=== PATIENT | male | born 1935 | race Caucasian/White ===

== ENCOUNTER → 2017-04-05 | Outpatient (CLI) | payer MEDICARE ==
[~2017-04-05] MED LIST: ACYC5CRE5 TOP; AMOX500C7 PO; ASPI-1441 PO; B CO1CAP PO; BENA20TA8 PO; BENA40TA51 PO; BENA40TA52 PO; CHOL100058 PO; CIPDEXPT LEFT EAR; DIURETIC; DOXA2TAB57 PO; DOXA4TAB58 PO; ERYT1OIN3 ASDIRECTED; GEM600 PO; GLUC100026 PO; GLUC1TAB25 PO; HCTZ25 PO; PANT40TA65 PO; PER PO; PROP225T12 PO; [UNRECOGNIZED DRUG - CODE] PO; [UNRECOGNIZED DRUG - CODE] PO
== END ==
LOC: LAB 08:51
PROVIDERS: ATTEND Family Medicine
DX: Z02.9 Encounter for administrative examinations, unspecified (principal)

== ENCOUNTER → 2017-04-05 | Outpatient (CLI) | payer MEDICARE | LOC: LAB 09:20 | PROVIDERS: ATTEND Family Medicine | DX: R39.15 Urgency of urination (principal) | CPT/HCPCS: 81001 ==

== ENCOUNTER 2017-06-11 10:27 | Outpatient (RCR) | payer MEDICARE | END 2017-06-21 14:19 | disposition home or self-care (01) | LOC: RAON 10:27 | PROVIDERS: ATTEND Radiology Radiation Oncology | DX: C61 Malignant neoplasm of prostate (principal); Z85.51 Personal history of malignant neoplasm of bladder; Z92.3 Personal history of irradiation; I10 Essential (primary) hypertension; Z79.82 Long term (current) use of aspirin; Z79.899 Other long term (current) drug therapy; Z87.891 Personal history of nicotine dependence | CPT/HCPCS: 99212 ==

== ENCOUNTER → 2017-07-30 | Outpatient (CLI) | payer MEDICARE ==
[~2017-07-30] MED LIST changes: +ERYT1OIN3 TOP; +HYDR12.556 PO
--- NOTE | 2017-08-01 15:27 | RT HOLTER TEST ---
FACILITY: [facility] PATIENT NAME: Jack KOHLER : [id number] MR: [id number] V: [id number] EXAM DATE: ORDERING PHYSICIAN: KELLY CERVANTES TECHNOLOGIST: MARY ELLEN Rosales-up date: 2017-07-30 13:07:00 Duration: 47:46:00 Test Indications: PALPITATIONS Medications: 147448 QRS complexes 4798 Ventricular ectopics which represent 2 % of total QRS comp. 526 Supraventricular ectopics which represent <1 % of total QRS comp. * Paced QRS complexes which represent % of total QRS comp. VENTRICULAR ECTOPY 4794 Isolated 6 Bigeminal Cycles 2 Couplets 0 Runs 0 Beats in Runs * Beats LONGEST at * BPM at :: -- * Beats FASTEST at * BPM at :: -- SUPRAVENTRICULAR ECTOPY 524 Isolated 1 Couplets 0 Runs 0 Beats in Runs * Beats LONGEST at * BPM at :: -- * Beats FASTEST at * BPM at :: -- HEART RATES 47 MIN at 02:30:40 2017-07-31 74 AVG 126 MAX at 08:52:42 2017-08-01 LONGEST RR 1.736 secs at 00:37:40 2017-08-01 Channel 2 -12.800 mm MIN at 13:07:00 2017-07-30 -12.800 mm MAX at 13:07:00 2017-07-30 Channel 3 -12.800 mm MIN at 13:07:00 2017-07-30 -12.800 mm MAX at 13:07:00 2017-07-30 There were no reported symptoms during the test. The patient was predominantly in a sinus rhythm th roughout the test. There were some ventricular ectopic beats and occasioinal supraventricular ectopic beats Confirmed by AKUA ESCOBEDO ([id number]) on 08/01/2017 3:27:18 PM Referred By: Overread By: AKUA ESCOBEDO
== END ==
LOC: RESP 06:45
PROVIDERS: ATTEND Family Medicine
DX: I49.9 Cardiac arrhythmia, unspecified (principal)
CPT/HCPCS: 93225; 93226

== ENCOUNTER 2017-10-06 19:25 | Emergency (ER) | payer MEDICARE ==
[~2017-10-06 19:25] MED LIST changes: +BENA20TA64 PO; -BENA20TA8 PO; -BENA40TA52 PO; +BENA40TA53 PO
--- NOTE | 2017-10-06 19:33 | ER Report ---
History and Physical Time Seen By MD: 19:31 HPI/ROS CHIEF COMPLAINT: Hypertension HISTORY OF PRESENT ILLNESS: Patient is an 81-year-old male here with complaints of hypertension. Patient checks his blood pressure at home daily and is currently being treated with benazepril, doxazosin. Reportedly his systolic blood pressure was in the 190s prompting emergency department evaluation today. Patient reports having mild burning sensation in his eyes however denies headache, blurred vision, chest pain, shortness of breath, nausea, vomiting, abdominal pain, decreased urine output. Patient is afebrile, in no acute distress. Patient also complains of a small rash on his left ankle which he attributes to spider bite. REVIEW OF SYSTEMS: Constitutional: No fever, no chills. Eyes: No discharge, + burning sensation. ENT: No sore throat. Cardiovascular: No chest pain, no palpitations. Respiratory: No cough, no shortness of breath. Gastrointestinal: No abdominal pain, no vomiting. Genitourinary: No hematuria. Musculoskeletal: No back pain. Skin: No rashes. Neurological: No headache. Allergies: Coded Allergies: soy (Verified Allergy, Severe, BLURRED VISION, HEADACHES, 10/06/17) clindamycin (Verified Allergy, Unknown, 10/06/17) fentanyl (Verified Allergy, Unknown, Nausea, 10/06/17) morphine (Verified Adverse Reaction, Severe, NV, 10/06/17) Uncoded Allergies: tobacco (Allergy, Unknown, 02/15/17) Home Meds Active Scripts Hydrochlorothiazide (HYDROCHLOROTHIAZIDE) 12.5 Mg Capsule, 1 TAB PO QDAY for 90 Days, #90 CAPSULE 3 Refills Prov:KELLY CERVANTES MD 07/01/17 Benazepril Hcl (BENAZEPRIL HCL) 20 Mg Tab, 2 TAB PO QDAY for 90 Days, #180 TAB 4 Refills Prov:KELLY CERVANTES MD 03/22/17 Reported Medications Glucosamine/D3/Boswellia Shraddha (GLUCOSAMINE COMPLEX TABLET) 1 Each Tablet, 1 TAB PO BID 02/15/17 Propafenone Hcl (PROPAFENONE HCL) 225 Mg Cap.er.12h, 1 CAP PO BID 02/15/17 Doxazosin Mesylate (DOXAZOSIN MESYLATE) 4 Mg Tablet, 1 TAB PO QDAY 10/11/16 Vitamin B Comp W-C (Kelly B Comp W/C) 1 Cap Capsule, 1 CAP PO DAILY 11/10/08 Aspirin (Aspirin Ec) 81 Mg Tablet.dr, 1 TAB PO DAILY 11/10/08 Discontinued Scripts Erythromycin Base (Erythromycin) 5 Mg/Gram (0.5 %) Oint...g., 1 BRANDON TOP 3-4XD for 7 Days, #1 TUB 0 Refills Prov:JULIO LU DNP, ASSISTANT TOD[employer]ER TE[employer]ER-BC 07/05/17 Hx Smoking: Yes (AGE 19 FOR JUST A YR.) Smoking Status: Former Smoker Hx Substance Use Disorder: No Hx Alcohol Use: No Constitutional Vital Sign - Last 24 Hours 10/06/17 19:29 Temp 98.7 Pulse 66 Resp 16 B/P (MAP) 183/85 Pulse Ox 91 O2 Delivery Room Air Physical Exam General Appearance: The patient is alert, has no immediate need for airway protection and no signs of toxicity. No acute distress Eyes: Pupils equal and round no pallor or injection. ENT, Mouth: Mucous membranes are moist. Respiratory: There are no retractions, lungs are clear to auscultation. Cardiovascular: Regular rate and rhythm. + Hypertensive Gastrointestinal: Abdomen is soft and non tender, no masses, bowel sounds normal. Neurological: No focal neurological deficits Skin: Warm and dry, no rashes. Musculoskeletal: Neck is supple non tender. Extremities are nontender, nonswollen and have full range of motion. DIFFERENTIAL DIAGNOSIS: After history and physical exam differential diagnosis was considered for symptomatic versus asymptomatic hypertension, end organ damage Medical Decision Making Data Points Result Diagram: 10/06/17195210/06/171952 Laboratory Hematology Test 10/06/17 19:53 10/06/17 20:08 Red Blood Count 4.52 M/uL (4.00-5.60) Mean Corpuscular Volume 95.9 fL (80.0-96.0) Mean Corpuscular Hemoglobin 33.4 pg (26.0-33.0) Mean Corpuscular Hemoglobin Concent 34.8 g/dL (32.0-36.0) Red Cell Distribution Width 13.2 % (11.5-14.5) Mean Platelet Volume 9.0 fL (7.2-11.1) Neutrophils (%) (Auto) 73.6 % (39.4-72.5) Lymphocytes (%) (Auto) 9.8 % (17.6-49.6) Monocytes (%) (Auto) 6.4 % (4.1-12.4) Eosinophils (%) (Auto) 7.3 % (0.4-6.7) Basophils (%) (Auto) 2.9 % (0.3-1.4) Nucleated RBC Relative Count (auto) 0.1 /100WBC Neutrophils # (Auto) 3.5 K/uL (2.0-7.4) Lymphocytes # (Auto) 0.5 K/uL (1.3-3.6) Monocytes # (Auto) 0.3 K/uL (0.3-1.0) Eosinophils # (Auto) 0.3 K/uL (0.0-0.5) Basophils # (Auto) 0.1 K/uL (0.0-0.1) Nucleated RBC Absolute Count (auto) 0.01 K/uL Sodium Level 141 mmol/L (137-145) Potassium Level 3.6 mmol/L (3.5-5.0) Chloride Level 105 mmol/L (98-107) Carbon Dioxide Level 26 mmol/L (22-30) Blood Urea Nitrogen 20 mg/dl (9-21) Creatinine 1.10 mg/dl (0.66-1.25) Glomerular Filtration Rate Calc > 60.0 Random Glucose 119 mg/dl (75-110) Calcium Level 9.1 mg/dl (8.4-10.2) Total Bilirubin 0.4 mg/dl (0.2-1.3) Aspartate Amino Transf (AST/SGOT) 20 U/L (0-35) Alanine Aminotransferase (ALT/SGPT) 19 U/L (0-56) Alkaline Phosphatase 88 U/L (0-126) Total Protein 6.4 g/dl (6.3-8.2) Albumin 3.9 g/dl (3.5-5.0) Chemistry Test 10/06/17 19:53 10/06/17 20:08 White Blood Count 4.7 k/uL (4.5-11.0) Red Blood Count 4.52 M/uL (4.00-5.60) Hemoglobin 15.1 g/dL (14.0-18.0) Hematocrit 43.3 % (42.0-52.0) Mean Corpuscular Volume 95.9 fL (80.0-96.0) Mean Corpuscular Hemoglobin 33.4 pg (26.0-33.0) Mean Corpuscular Hemoglobin Concent 34.8 g/dL (32.0-36.0) Red Cell Distribution Width 13.2 % (11.5-14.5) Platelet Count 145 K/uL (150-450) Mean Platelet Volume 9.0 fL (7.2-11.1) Neutrophils (%) (Auto) 73.6 % (39.4-72.5) Lymphocytes (%) (Auto) 9.8 % (17.6-49.6) Monocytes (%) (Auto) 6.4 % (4.1-12.4) Eosinophils (%) (Auto) 7.3 % (0.4-6.7) Basophils (%) (Auto) 2.9 % (0.3-1.4) Nucleated RBC Relative Count (auto) 0.1 /100WBC Neutrophils # (Auto) 3.5 K/uL (2.0-7.4) Lymphocytes # (Auto) 0.5 K/uL (1.3-3.6) Monocytes # (Auto) 0.3 K/uL (0.3-1.0) Eosinophils # (Auto) 0.3 K/uL (0.0-0.5) Basophils # (Auto) 0.1 K/uL (0.0-0.1) Nucleated RBC Absolute Count (auto) 0.01 K/uL Glomerular Filtration Rate Calc > 60.0 Calcium Level 9.1 mg/dl (8.4-10.2) Total Bilirubin 0.4 mg/dl (0.2-1.3) Aspartate Amino Transf (AST/SGOT) 20 U/L (0-35) Alanine Aminotransferase (ALT/SGPT) 19 U/L (0-56) Alkaline Phosphatase 88 U/L (0-126) Total Protein 6.4 g/dl (6.3-8.2) Albumin 3.9 g/dl (3.5-5.0) Urinalysis Test 10/06/17 20:08 ED Course/Re-evaluation ED Course Patient is an 81-year-old male here with complaints of asymptomatic hypertension on an CHUCHO inhibitor Benazepril as well as doxazosin. Patient denies headache, blurred vision, chest pain, shortness breath, abdominal pain, decreased urine output or other end organ indicators. Labs were checked at patient's history of polycystic kidney disease and compromised renal function at baseline. Labs were unremarkable. Kidney function unremarkable. Decision was made not to treat the hypertension and to have the patient follow-up with his PCP for medication management. Patient was stable at time of discharge. Blood pressure improved without treatment. Decision to Disposition Date: Oct 06, 2017 Decision to Disposition Time: 20:22 Depart Departure Latest Vital Signs Vital Signs Date Time Temp Pulse Resp B/P (MAP) Pulse Ox O2 Delivery O2 Flow Rate FiO2 10/06/17 19:29 98.7 66 16 183/85 91 Room Air Impression: Primary Impression: Hypertension Condition: Improved Disposition: HOME OR SELF-CARE Referrals: KELLY CERVANTES MD (PCP) Patient Instructions: Chronic Hypertension (ED) Additional Instructions: Please follow up with your family doctor in the next several days for evaluation for medication management of your high blood pressure. Please return if you develop signs of end organ involvement such as headache, vision changes, chest pain, difficulty breathing, decreased urine outputs, abdominal pain. RYAN RAMIREZ DO Oct 06, 2017 19:33
[2017-10-06 20:00] VITALS: BP 155/63
[2017-10-06 20:01] LABS: PLATELET COUNT, AUTOMATED 145 K/uL (150-450)
== END 2017-10-06 20:31 | disposition home or self-care (01) ==
LOC: ER 19:30
DX: I10 Essential (primary) hypertension (principal)
CPT/HCPCS: 36415; 81001; 82040; 82247; 82310; 82374; 82435; 82565; 82947; 84075; 84132; 84155; 84295; 84450; 84460; 84520; 85025; 99282

== ENCOUNTER → 2017-10-22 | Outpatient (CLI) | payer MEDICARE ==
--- NOTE | 2017-10-22 17:42 | RADIOLOGY IMAGING REPORT ---
FACILITY: [facility] PATIENT NAME: Jack Hernandez : 1935 MR: [id number] V: [id number] EXAM DATE: ORDERING PHYSICIAN: KELLY CERVANTES TECHNOLOGIST: Location: [facility] - [place], [place] Patient: Jack Hernandez : 1935 Visit/Account:[id number] Date of Sevice: 10/22/2017 Exam type: BILATERAL RIBS History: eval ribs for deformity or lesions Comparison: None Findings: A BB was placed over the patient's palpable findings. This is adjacent to the distal aspect of the r ight 11th rib. No abnormal lesion is seen. No evidence of acute rib fractures. Mildly prominent co stochondral cartilage is present particularly along the anterior aspect of the lower ribs bilaterally . IMPRESSION: 1. No evidence of a rib lesion or acute appearing rib fracture Mildly prominent costochondral cartilage is noted along the anterior aspect of the lower ribs bilater ally. This may represent patient's palpable findings Report Dictated By: Kristie Chris MD at 10/22/2017 5:36 PM Report E-Signed By: Kristie Chris MD at 10/22/2017 5:39 PM WSN:[email or web address]
== END ==
LOC: RAD 16:42
PROVIDERS: ATTEND Family Medicine
DX: M95.4 Acquired deformity of chest and rib (principal); Z85.46 Personal history of malignant neoplasm of prostate
CPT/HCPCS: 71111

== ENCOUNTER → 2018-01-02 | Outpatient (CLI) | payer MEDICARE ==
[~2018-01-02] MED LIST changes: +DICL100G39 TOP; +HYDR-2966 PO
--- NOTE | 2018-01-02 10:06 | RADIOLOGY IMAGING REPORT ---
FACILITY: [facility] PATIENT NAME: Jack Hernandez : 1935 MR: [id number] V: [id number] EXAM DATE: ORDERING PHYSICIAN: KELLY CERVANTES TECHNOLOGIST: Location: [facility] Patient: Jack Hernandez : 1935 Visit/Account:[id number] Date of Sevice: 01/02/2018 Bilateral carotid artery Doppler duplex ultrasound scan. HISTORY: Hypertension. COMPARISON: None. A color flow Doppler duplex ultrasound scan with spectral analysis was performed on the carotid and v ertebral arteries bilaterally. Measurement of carotid stenosis is based on velocity parameters that correlate the residual internal carotid diameter with [place] Symptomatic Carotid Endarterecto my Trial (NASCET)- based stenosis levels. Right carotid peak systolic velocities are as follows: Superior right ICA - 111 cm/sec. Mid right ICA - 88 cm/sec. Proximal right ICA - 68 cm/sec. Right carotid bulb - 47 cm/sec. Superior right CCA - 84 cm/sec. Mid right CCA- 118 cm/sec. Inferior right CCA- 143 cm/sec. Proximal right ECA- 91 cm/sec. Mid right vertebral- 38 cm/sec. Right ICA/CCA ratio- 0.9 ( normal < 1.5 ). Antegrade right vertebral artery flow- YES. Left carotid peak systolic velocities are as follows: Superior left ICA - 102 cm/sec. Mid left ICA- 68 cm/sec. Proximal left ICA- 57 cm/sec. Left carotid bulb- 49 cm/sec. Superior left CCA- 93 cm/sec. Mid left CCA- 105 cm/sec. Inferior left CCA- 118 cm/sec. Proximal left ECA- 114 cm/sec. Mid left vertebral- 18 cm/sec. Left ICA/CCA ratio- 1.0 ( normal < 1.5). Antegrade left vertebral artery flow- YES. Partially calcified plaques are present in the carotid bulbs and proximal internal carotid arteries b ilaterally resulting in 30-50% stenoses by visual criteria. IMPRESSION: 30-50% stenoses of the carotid bulbs and proximal internal carotid arteries bilaterally. Report Dictated By: Yamil Zimmer MD at 01/02/2018 9:58 AM Report E-Signed By: Yamil Zimemr MD at 01/02/2018 10:02 AM WSN:[email or web address]
--- NOTE | 2018-01-02 10:51 | RADIOLOGY IMAGING REPORT ---
FACILITY: [facility] - [place] PATIENT NAME: Jack Hernandez : 1935 MR: [id number] V: [id number] EXAM DATE: ORDERING PHYSICIAN: KELLY CERVANTES TECHNOLOGIST: Location: [facility] - [place] Patient: Jack Hernandez : 1935 Visit/Account:[id number] Date of Sevice: 01/02/2018 Exam type: ARTERIAL RENAL DUPLEX DOPPLER History: Resistant hypertension, headache Comparison: Renal ultrasound March 24, 2015. Findings: Right kidney measures 9.2 x 5.9 x 5.2 cm.. 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 There are multiple right renal cysts largest measuring approximately 2.6 cm in diameter. Vascular evaluation of the right kidney is as follows: All velocities are in centimeters per second Superior Pole arcuate artery 52.7 with resistive index of 0.76 Superior interlobar artery 33 with a resistive index of 0.67 Appears segmental artery 25.8 with the resistive index is 0.78 Mid right arcuate artery 27.3 with a resistive index of 0.81 Mid interlobar artery 18.3 with a resistive index of 0.74 Mid segmental artery 21.3 with a resistive index of 0.79 Inferior arcuate artery left 1.2 with a resistive index of 0.69 Inferior interlobar artery 38.8 with resistive index of 0.68 Inferior segmental artery 18.5 with a resistive index of 0.65 The peak systolic velocity in the right renal artery is 78 centers per second. The resistive index i s 0.76. The right renal artery ratio was not calculated. The left kidney measures 11.46 x 5.6 x 5.5 cm. There are multiple left renal cysts the largest measu ring 5.5 cm in diameter. Vascular evaluation of the left kidney is as follows. All velocities are in centimeters per second. Superior Pole arcuate artery 35.6 cm/s with resistive index is 0.59 Superior interlobar artery 16.9 cm/s with a resistive index of 0.6 Superior pole segmental artery 36.9 centers per second with resistive index is 0.62 Mid arcuate artery 12.9 cm with a resistive index of 0.55 Mid interlobar artery 25.8 with a resistive index of 0.64 Mid segmental artery 33.8 with a resistive index of 0.64 Inferior arcuate artery 27.0 with a resistive index of 0.55 Inferior lobar artery 41.2 with a resistive index of 0.63 Inferior segmental artery 71.3 with a resistive index of 0.7 The peak systolic velocity in the left renal artery is 79.9 cm/s. The renal artery ratio on the left was not calculated IMPRESSION: 1. Numerous bilateral renal cysts as described above No elevated systolic velocities are identified in the renal arterial trees as described above Report Dictated By: Kristie Chris MD at 01/02/2018 10:38 AM Report E-Signed By: Kristie Chris MD at 01/02/2018 10:48 AM TRISHA:SHELLY
== END ==
LOC: US 01:21
PROVIDERS: ATTEND Family Medicine
DX: I65.23 Occlusion and stenosis of bilateral carotid arteries (principal); N28.1 Cyst of kidney, acquired
CPT/HCPCS: 93880; 93975

== ENCOUNTER 2018-01-04 09:38 | Emergency (ER) | payer MEDICARE ==
--- NOTE | 2018-01-04 09:58 | ER Report ---
History and Physical Time Seen By MD: 09:58 Hx. of Stated Complaint: DARK BLOOD IN URINE, URINATING FREQUENTLY. DENIES PAIN HPI/ROS CHIEF COMPLAINT: blood in urine and frequency HISTORY OF PRESENT ILLNESS: This is an 82 year old male. He has been having dark urine for several weeks now. No pain. He has developed urinary frequency. Has a history of bladder and kidney surgeries for cancer. Has had intermittent dark urine for months now. Has an appointment with his urologist later this week on Saturday. He is worrying about whether he would need to be seen sooner. No fevers or chills. No chest pain. No shortness of breath. Has also noted an increase in blood pressure recently as well. Reviewed recent labs from earlier this week and renal ultrasound. Labs showed and elevation of BUN and Creatinine as well as estimate GFR of 44 and ultrasound demonstrated multiple renal cysts. Allergies: Coded Allergies: soy (Verified Allergy, Severe, BLURRED VISION, HEADACHES, 10/06/17) clindamycin (Verified Allergy, Unknown, 10/06/17) fentanyl (Verified Allergy, Unknown, Nausea, 10/06/17) morphine (Verified Adverse Reaction, Severe, NV, 10/06/17) Uncoded Allergies: tobacco (Allergy, Unknown, 02/15/17) Home Meds Active Scripts Hydrochlorothiazide (HYDROCHLOROTHIAZIDE) 25 Mg Tablet, 1 TAB PO QDAY for 90 Days, #90 TAB Prov:KELLY CERVANTES MD 12/30/17 Diclofenac Sodium 1% Gel (VOLTAREN 1% GEL) 100 Gm Gel..gram., 2 GM TOP BID for 30 Days, #1 TUBE Prov:KELLY CERVANTES MD 11/25/17 Benazepril Hcl (BENAZEPRIL HCL) 20 Mg Tab, 2 TAB PO QDAY for 90 Days, #180 TAB 4 Refills Prov:KELLY CERVANTES MD 03/22/17 Reported Medications Glucosamine/D3/Boswellia Shraddha (GLUCOSAMINE COMPLEX TABLET) 1 Each Tablet, 1 TAB PO BID 02/15/17 Propafenone Hcl (PROPAFENONE HCL) 225 Mg Cap.er.12h, 1 CAP PO BID 02/15/17 Doxazosin Mesylate (DOXAZOSIN MESYLATE) 4 Mg Tablet, 1 TAB PO QDAY 10/11/16 Vitamin B Comp W-C (Kelly B Comp W/C) 1 Cap Capsule, 1 CAP PO DAILY 11/10/08 Aspirin (Aspirin Ec) 81 Mg Tablet.dr, 1 TAB PO DAILY 11/10/08 Discontinued Scripts Hydrochlorothiazide (HYDROCHLOROTHIAZIDE) 12.5 Mg Capsule, 2 TAB PO QDAY for 90 Days, #90 CAPSULE 3 Refills Prov:KELLY CERVANTES MD 12/08/17 Past Medical/Surgical History Atrial fibrillation, hypertension, bladder and kidney cancer/polycystic kidney disease, benign prostatic hypertrophy, history of partial right nephrectomy, bladder resection in 2007, prostate biopsies Reviewed Nurses Notes: Yes Hx Smoking: Yes (AGE 19 FOR JUST A YR.) Smoking Status: Former Smoker Hx Substance Use Disorder: No Hx Alcohol Use: No Constitutional Vital Sign - Last 24 Hours 01/04/18 01/04/18 01/04/18 01/04/18 09:38 09:44 09:47 09:53 Temp 98.0 Pulse ??? 72 ??? Resp 16 B/P (MAP) 138/70 (92) 138/70 Pulse Ox 94 O2 Delivery Room Air 01/04/18 01/04/18 01/04/18 01/04/18 10:00 10:08 10:23 10:30 Pulse 66 65 B/P (MAP) 139/74 (95) 130/71 (90) Pulse Ox 89 93 01/04/18 01/04/18 01/04/18 01/04/18 10:38 10:53 11:00 11:08 Pulse 66 65 ??? B/P (MAP) 128/61 (83) Pulse Ox 89 90 01/04/18 01/04/18 01/04/18 01/04/18 11:23 11:30 11:35 11:50 Pulse 65 60 63 B/P (MAP) 126/62 (83) Pulse Ox 90 91 91 01/04/18 01/04/18 01/04/18 01/04/18 12:00 12:05 12:20 12:30 Pulse 59 63 B/P (MAP) 131/69 (89) 136/79 (98) Pulse Ox 92 91 Physical Exam General Appearance: The patient is alert. No acute distress. Eyes: Pupils are equal, round. No pallor, injection or icterus. ENT: Mucous membranes are moist. Normal oral mucosa. Posterior oropharynx is normal. Neck: Supple and non tender. Respiratory: Lungs are clear to auscultation. Cardiovascular: Regular rate and rhythm. No murmurs, gallops or rubs. Normal capillary refill. Gastrointestinal: Abdomen is soft and non tender. Nondistended. Normal active bowel sounds. Neurological: Alert and oriented x3. No focal neurologic deficits Skin: Warm and dry. Musculoskeletal: No CVA tenderness and no pain with palpation of the back. DIFFERENTIAL DIAGNOSIS: After history and physical exam, differential diagnosis was considered for patient with dark urine, history of bladder and kidney cancer, could be urinary infection with the frequency versus bleeding from anywhere in the urinary tract. Medical Decision Making Data Points Result Diagram: 01/04/18 1028 01/04/18 1028 Laboratory Hematology Test 01/04/18 09:53 01/04/18 10:28 Urine Color Red Urine Clarity Cloudy Urine pH 5.0 pH (4.8-9.5) Urine Specific [place] 1.013 Urine Protein 30 mg/dL (NEGATIVE) Urine Glucose (UA) Negative mg/dL (NEGATIVE) Urine Ketones Negative mg/dL (NEGATIVE) Urine Blood Large (NEGATIVE) Urine Nitrite Negative (NEGATIVE) Urine Bilirubin Negative (NEGATIVE) Urine Urobilinogen Negative mg/dL (0.2-1.9) Urine Leukocyte Esterase Negative (NEGATIVE) Urine RBC 2822 /HPF (0-2/HPF) Urine WBC None /HPF (0-5/HPF) Urine Squamous Epithelial Cells None /LPF (</=FEW) Urine Bacteria Few /HPF (NONE-FEW) Urine Mucus Few /HPF (NONE-FEW) Red Blood Count 4.48 M/uL (4.00-5.60) Mean Corpuscular Volume 98.0 fL (80.0-96.0) Mean Corpuscular Hemoglobin 33.5 pg (26.0-33.0) Mean Corpuscular Hemoglobin Concent 34.2 g/dL (32.0-36.0) Red Cell Distribution Width 13.2 % (11.5-14.5) Mean Platelet Volume 8.6 fL (7.2-11.1) Neutrophils (%) (Auto) 75.5 % (39.4-72.5) Lymphocytes (%) (Auto) 9.6 % (17.6-49.6) Monocytes (%) (Auto) 9.4 % (4.1-12.4) Eosinophils (%) (Auto) 5.0 % (0.4-6.7) Basophils (%) (Auto) 0.5 % (0.3-1.4) Nucleated RBC Relative Count (auto) 0.0 /100WBC Neutrophils # (Auto) 4.1 K/uL (2.0-7.4) Lymphocytes # (Auto) 0.5 K/uL (1.3-3.6) Monocytes # (Auto) 0.5 K/uL (0.3-1.0) Eosinophils # (Auto) 0.3 K/uL (0.0-0.5) Basophils # (Auto) 0.0 K/uL (0.0-0.1) Nucleated RBC Absolute Count (auto) 0.00 K/uL Sodium Level 140 mmol/L (137-145) Potassium Level 3.7 mmol/L (3.5-5.0) Chloride Level 104 mmol/L (98-107) Carbon Dioxide Level 27 mmol/L (22-30) Blood Urea Nitrogen 25 mg/dl (9-21) Creatinine 1.40 mg/dl (0.66-1.25) Glomerular Filtration Rate Calc 48.4 Random Glucose 102 mg/dl (75-110) Calcium Level 9.0 mg/dl (8.4-10.2) Total Bilirubin 0.6 mg/dl (0.2-1.3) Aspartate Amino Transf (AST/SGOT) 21 U/L (0-35) Alanine Aminotransferase (ALT/SGPT) 28 U/L (0-56) Alkaline Phosphatase 69 U/L (0-126) Total Protein 6.6 g/dl (6.3-8.2) Albumin 3.8 g/dl (3.5-5.0) Chemistry Test 01/04/18 09:53 01/04/18 10:28 Urine Color Red Urine Clarity Cloudy Urine pH 5.0 pH (4.8-9.5) Urine Specific [place] 1.013 Urine Protein 30 mg/dL (NEGATIVE) Urine Glucose (UA) Negative mg/dL (NEGATIVE) Urine Ketones Negative mg/dL (NEGATIVE) Urine Blood Large (NEGATIVE) Urine Nitrite Negative (NEGATIVE) Urine Bilirubin Negative (NEGATIVE) Urine Urobilinogen Negative mg/dL (0.2-1.9) Urine Leukocyte Esterase Negative (NEGATIVE) Urine RBC 2822 /HPF (0-2/HPF) Urine WBC None /HPF (0-5/HPF) Urine Squamous Epithelial Cells None /LPF (</=FEW) Urine Bacteria Few /HPF (NONE-FEW) Urine Mucus Few /HPF (NONE-FEW) White Blood Count 5.5 k/uL (4.5-11.0) Red Blood Count 4.48 M/uL (4.00-5.60) Hemoglobin 15.0 g/dL (14.0-18.0) Hematocrit 44.0 % (42.0-52.0) Mean Corpuscular Volume 98.0 fL (80.0-96.0) Mean Corpuscular Hemoglobin 33.5 pg (26.0-33.0) Mean Corpuscular Hemoglobin Concent 34.2 g/dL (32.0-36.0) Red Cell Distribution Width 13.2 % (11.5-14.5) Platelet Count 151 K/uL (150-450) Mean Platelet Volume 8.6 fL (7.2-11.1) Neutrophils (%) (Auto) 75.5 % (39.4-72.5) Lymphocytes (%) (Auto) 9.6 % (17.6-49.6) Monocytes (%) (Auto) 9.4 % (4.1-12.4) Eosinophils (%) (Auto) 5.0 % (0.4-6.7) Basophils (%) (Auto) 0.5 % (0.3-1.4) Nucleated RBC Relative Count (auto) 0.0 /100WBC Neutrophils # (Auto) 4.1 K/uL (2.0-7.4) Lymphocytes # (Auto) 0.5 K/uL (1.3-3.6) Monocytes # (Auto) 0.5 K/uL (0.3-1.0) Eosinophils # (Auto) 0.3 K/uL (0.0-0.5) Basophils # (Auto) 0.0 K/uL (0.0-0.1) Nucleated RBC Absolute Count (auto) 0.00 K/uL Glomerular Filtration Rate Calc 48.4 Calcium Level 9.0 mg/dl (8.4-10.2) Total Bilirubin 0.6 mg/dl (0.2-1.3) Aspartate Amino Transf (AST/SGOT) 21 U/L (0-35) Alanine Aminotransferase (ALT/SGPT) 28 U/L (0-56) Alkaline Phosphatase 69 U/L (0-126) Total Protein 6.6 g/dl (6.3-8.2) Albumin 3.8 g/dl (3.5-5.0) Urinalysis Test 01/04/18 09:53 Urine Color Red Urine Clarity Cloudy Urine pH 5.0 pH (4.8-9.5) Urine Specific [place] 1.013 Urine Protein 30 mg/dL (NEGATIVE) Urine Glucose (UA) Negative mg/dL (NEGATIVE) Urine Ketones Negative mg/dL (NEGATIVE) Urine Blood Large (NEGATIVE) Urine Nitrite Negative (NEGATIVE) Urine Bilirubin Negative (NEGATIVE) Urine Urobilinogen Negative mg/dL (0.2-1.9) Urine Leukocyte Esterase Negative (NEGATIVE) Urine RBC 2822 /HPF (0-2/HPF) Urine WBC None /HPF (0-5/HPF) Urine Squamous Epithelial Cells None /LPF (</=FEW) Urine Bacteria Few /HPF (NONE-FEW) Urine Mucus Few /HPF (NONE-FEW) EKG/Imaging Imaging ABDOMEN/PELVIS W/O CONTRAST HISTORY: hematuria TECHNIQUE: Axial images were obtained through the abdomen and pelvis without intravenous contrast . One of the following dose optimization techniques was utilized in the performance of this exam: automated exposure control; adjustment of the mA and/or kv according to patient size; or use of iterative reconstructi on technique. Specific details can be referenced in the facility's radiology CT exam operational policy. CONTRAST: None COMPARISON: MRI abdomen 03/22/2015. FINDINGS: Visualized lung bases: Basilar platelike atelectasis. Hepatobiliary: Gallstones. Vague 4.4 x 2.8 cm lesion within the dome the liver previously calcified as a hemangioma on MRI examination. Subcentimeter cyst within the left hepatic lobe. Spleen: Negative. Adrenals: Mild thickening of the left adrenal gland. 1.3 x 0.9 cm right adrenal gland nodule Pancreas: Negative. Kidneys/ureters/bladder: No radiopaque urinary tract calculus. No hydronephrosis. Postoperative changes at the lower pole the left kidney with irregular soft tissue measuring 2.4 x 1.6 cm (coronal image 57), unchanged in size from MRI. Additional simple bilateral renal cysts as well as high attenuation lesions within both kidneys measuring up to 5.3 cm, previously 4.7 cm Bowel/peritoneum/mesentery: Large diverticulum at the duodenal-jejunal junction measuring 5.5 x 4.2 cm. Tiny hiatal hernia. Normal appendix. Moderate colonic diverticulosis without acute inflammatory change.. Vessels: Mild to moderate arterial calcifications. Lymph nodes: Negative. Pelvic genitourinary: Mild prostate enlargement. Bones/body wall: Moderate degenerative disc disease from L4-S1.. Other findings: None significant IMPRESSION: 1. Negative examination for a radiopaque urinary tract calculus or hydronephrosis. 2. Postoperative changes at the lower pole the right kidney with ill-defined soft tissue at the operative bed grossly unchanged in size from prior MRI examination although comparison between different modalities is difficult. Enlarging high attenuation lesions within both kidneys which are most likely hemorrhagic/proteinaceous cysts. Recommend outpatient examination with and without contrast for further evaluation. Report Dictated By: Buster Bolivar MD at 01/04/2018 11:33 AM ED Course/Re-evaluation Clinical Indication for ER IV: IV Access ED Course BUN and Creatinine without any change since labs a few days ago. No change in blood count. CT scan shows changes in the post-surgical area, but no other acute problems noted. I discussed the results with the patient. He will keep his appointment with his Urologist on Saturday. Will return or go to [facility] is having further problems in the meantime. Decision to Disposition Date: Jan 04, 2018 Decision to Disposition Time: 12:53 Depart Departure Latest Vital Signs Vital Signs Date Time Temp Pulse Resp B/P (MAP) Pulse Ox O2 Delivery O2 Flow Rate FiO2 01/04/18 12:30 136/79 (98) 01/04/18 12:20 63 91 01/04/18 09:47 98.0 16 Room Air Impression: Primary Impression: Hematuria Condition: Condition Unchanged Disposition: HOME OR SELF-CARE Referrals: KELLY CERVANTES MD (PCP) Patient Instructions: Hematuria (ED) Additional Instructions: Keep your appointment with your urologist this week. Return if worsening symptoms such as dizziness, shortness of breath, or if having worsening urinary symptoms, especially inability to urinate. Keep holding your aspirin. Consider holding the diclofenac as well, and temporary switch to Tylenol. Problem Qualifiers Primary Impression: Hematuria Hematuria type: gross Qualified Codes: R31.0 - Gross hematuria CAREY REYNOSO MD Jan 04, 2018 09:58
[2018-01-04 10:50] LABS: PLATELET COUNT, AUTOMATED 151 K/uL (150-450)
--- NOTE | 2018-01-04 11:52 | RADIOLOGY IMAGING REPORT ---
[place] [facility] [place] NAME: Jack Hernandez : 1935 MR: [id number] V: [id number] EXAM DATE: ORDERING PHYSICIAN: CAREY REYNOSO TECHNOLOGIST: Location: [facility] - [place] Patient: Jack Hernandez : 1935 Visit/Account:[id number] Date of Sevice: 01/04/2018 ABDOMEN/PELVIS W/O CONTRAST HISTORY: hematuria TECHNIQUE: Axial images were obtained through the abdomen and pelvis without intravenous contrast . One of the following dose optimization techniques was utilized in the performance of this exam: autom ated exposure control; adjustment of the mA and/or kv according to patient size; or use of iterative reconstruction technique. Specific details can be referenced in the facility's radiology CT exam oper ational policy. CONTRAST: None COMPARISON: MRI abdomen 03/22/2015. FINDINGS: Visualized lung bases: Basilar platelike atelectasis. Hepatobiliary: Gallstones. Vague 4.4 x 2.8 cm lesion within the dome the liver previously calcified as a hemangioma on MRI examination. Subcentimeter cyst within the left hepatic lobe. Spleen: Negative. Adrenals: Mild thickening of the left adrenal gland. 1.3 x 0.9 cm right adrenal gland nodule Pancreas: Negative. Kidneys/ureters/bladder: No radiopaque urinary tract calculus. No hydronephrosis. Postoperative adams ges at the lower pole the left kidney with irregular soft tissue measuring 2.4 x 1.6 cm (coronal maame ge 57), unchanged in size from MRI. Additional simple bilateral renal cysts as well as high attenuati on lesions within both kidneys measuring up to 5.3 cm, previously 4.7 cm Bowel/peritoneum/mesentery: Large diverticulum at the duodenal-jejunal junction measuring 5.5 x 4.2 cm. Tiny hiatal hernia. Normal appendix. Moderate colonic diverticulosis without acute inflammatory c hange.. Vessels: Mild to moderate arterial calcifications. Lymph nodes: Negative. Pelvic genitourinary: Mild prostate enlargement. Bones/body wall: Moderate degenerative disc disease from L4-S1.. Other findings: None significant IMPRESSION: 1. Negative examination for a radiopaque urinary tract calculus or hydronephrosis. 2. Postoperative changes at the lower pole the right kidney with ill-defined soft tissue at the opera tive bed grossly unchanged in size from prior MRI examination although comparison between different m odalities is difficult. Enlarging high attenuation lesions within both kidneys which are most likely hemorrhagic/proteinaceous cysts. Recommend outpatient examination with and without contrast for furth er evaluation. Report Dictated By: Buster Bolivar MD at 01/04/2018 11:33 AM Report E-Signed By: Buster Bolivar MD at 01/04/2018 11:49 AM WSN:[id number]
[2018-01-04 12:30] VITALS: BP 136/79
== END 2018-01-04 13:05 | disposition home or self-care (01) ==
LOC: ER 10:18
DX: R31.0 Gross hematuria (principal)
CPT/HCPCS: 74176; 81001; 82040; 82247; 82310; 82374; 82435; 82565; 82947; 84075; 84132; 84155; 84295; 84450; 84460; 84520; 85025; 99284

== ENCOUNTER → 2018-02-24 | Outpatient (CLI) | payer MEDICARE ==
--- NOTE | 2018-02-24 14:51 | RADIOLOGY IMAGING REPORT ---
FACILITY: [facility] PATIENT NAME: Jack Hernandez : 1935 MR: [id number] V: [id number] EXAM DATE: ORDERING PHYSICIAN: JADA COTTER [place]CHN[place] [facility] [place] : 1935 Visit/Account:[id number] Date of Sevice: 02/24/2018 KIDNEYS EXAMINATION: Renal ultrasound. History: Flank pain, partial bladder resection for bladder cancer COMPARISON STUDIES: January 02, 2018 FINDINGS: Kidneys: Right kidney- 11.2 x 6.9 x 5.5 cm Left kidney- 12.1 x 7.7 x 4 point for cm Uniform and symmetric blood flow in each kidney by Doppler ultrasound. Hydronephrosis: Moderate on the left There bilateral renal cysts again noted is a lobular contour to both kidneys with a heterogeneous carina earance to the renal parenchyma. The resistive index on the right is 0.68 on the left 0.63 Bladder: Prevoid volume 147 mL. Post void residual 13 mL. Bilateral ureteral jets are present Abdominal aorta and IVC: Aorta and IVC are patent by Doppler ultrasound. IMPRESSION: Moderate left hydronephrosis Bilateral renal cysts Lobular contour to both kidneys heterogeneous appearance to the renal parenchyma. This can be seen w [facility] medical renal disease Report Dictated By: Kristie Chris MD at 02/24/2018 2:41 PM Report E-Signed By: Kristie Chris MD at 02/24/2018 2:46 PM WSN:[email or web address]
== END ==
LOC: US 04:55
PROVIDERS: ATTEND Urology
DX: C67.9 Malignant neoplasm of bladder, unspecified (principal); N13.30 Unspecified hydronephrosis; N28.1 Cyst of kidney, acquired
CPT/HCPCS: 76705

== ENCOUNTER → 2018-04-15 | Outpatient (CLI) | payer MEDICARE ==
[~2018-04-15] MED LIST changes: +CIPR-214 PO; +[UNRECOGNIZED DRUG - CODE] INTRAVES
--- NOTE | 2018-04-15 13:10 | RADIOLOGY IMAGING REPORT ---
FACILITY: [facility] - [place] PATIENT NAME: Jack Hernandez : 1935 MR: [id number] V: [id number] EXAM DATE: ORDERING PHYSICIAN: JADA COTTER TECHNOLOGIST: Location: [facility] - [place] Patient: Jack Hernandez : 1935 Visit/Account:[id number] Date of Sevice: 04/15/2018 KIDNEYS EXAMINATION: Renal ultrasound. History: Bladder malignancy, dilated left kidney COMPARISON STUDIES: February 24, 2018 FINDINGS: Kidneys: Right kidney- 9.3 x 4.1 x 3.9 cm Left kidney- 11.5 x 4.5 x 5 cm Uniform and symmetric blood flow in each kidney by Doppler ultrasound. Hydronephrosis: Mild left hydronephrosis There multiple bilateral renal cysts. The largest cyst on the right measures 3 cm in diameter. The largest cyst on the left measures 5.7 cm. There is increased echogenicity seen throughout the kidney s which can be seen with medical renal disease. Bladder: Urinary bladder prevoid volume 212 mL and postvoid residual is 58 mL. There is a hypoechoic lobular structure within the posterior inferior left side the bladder measuring approximately 3.9 x 1.6 x 1.7 cm. Bilateral ureteral jets are present Abdominal aorta and IVC: Aorta and IVC are patent by Doppler ultrasound. IMPRESSION: There is a mild left hydronephrosis Bilateral renal cysts Increased echogenicity throughout the kidneys which can be seen with medical renal disease There is a 3.9 x 1.6 x 1.7 cm hypoechoic lobular structure along the posterior inferior left side the bladder which may be related to patient's reported bladder malignancy Report Dictated By: Kristie Chris MD at 04/15/2018 12:56 PM Report E-Signed By: Kristie Chris MD at 04/15/2018 1:03 PM WSN:[email or web address]
== END ==
LOC: US 06:56
PROVIDERS: ATTEND Urology
DX: N13.30 Unspecified hydronephrosis (principal); N28.1 Cyst of kidney, acquired; C67.2 Malignant neoplasm of lateral wall of bladder; N28.9 Disorder of kidney and ureter, unspecified
CPT/HCPCS: 76705

== ENCOUNTER 2018-04-18 20:23 | Emergency (ER) | payer MEDICARE ==
[2018-04-18 20:27] VITALS: BP 170/85
[2018-04-18] MEDS ORDERED: LIDOCAINE 2% 200MG/10ML UROJET TP ONE (20:40)
--- NOTE | 2018-04-18 21:17 | ER Report ---
History and Physical Time Seen By MD: 20:27 Hx. of Stated Complaint: Pt. had BCG treatment on with Dr. Lee. No unable to pass urine, feels like "clots" are blocking his urine flow. Hematuria reported, then no urine flow. HPI/ROS CHIEF COMPLAINT: Urinary retention HISTORY OF PRESENT ILLNESS: 82-year-old male undergoing BCG treatment of his bladder for bladder cancer by Dr. Landry received his infusion intravesicularly yesterday. Patient's unable to void his urine tonight. REVIEW OF SYSTEMS: Respiratory: No cough, no dyspnea. Cardiovascular: No chest pain, no palpitations. Gastrointestinal: No vomiting, no abdominal pain. Musculoskeletal: No back pain. Allergies: Coded Allergies: soy (Verified Allergy, Severe, BLURRED VISION, HEADACHES, 04/18/18) clindamycin (Verified Allergy, Unknown, 04/18/18) fentanyl (Verified Allergy, Unknown, Nausea, 04/18/18) morphine (Verified Adverse Reaction, Severe, NV, 04/18/18) Uncoded Allergies: tobacco (Allergy, Unknown, 02/15/17) Home Meds Active Scripts Bcg Vaccine, Live/Pf (BCG VACCINE (SERGIO STRAIN) VIAL) 50 Mg Vial, 50 MG INTRAVES Q7DAY for 42 Days, #1 VIAL Prov:NUBIA LEE MD 03/04/18 Hydrochlorothiazide (HYDROCHLOROTHIAZIDE) 25 Mg Tablet, 1 TAB PO QDAY for 90 Days, #90 TAB Prov:KELLY CERVANTES MD 12/30/17 Diclofenac Sodium 1% Gel (VOLTAREN 1% GEL) 100 Gm Gel..gram., 2 GM TOP BID for 30 Days, #1 TUBE Prov:KELLY CERVANTES MD 11/25/17 Benazepril Hcl (BENAZEPRIL HCL) 20 Mg Tab, 2 TAB PO QDAY for 90 Days, #180 TAB 4 Refills Prov:KELLY CERVANTES MD 03/22/17 Reported Medications Glucosamine/D3/Boswellia Shraddha (GLUCOSAMINE COMPLEX TABLET) 1 Each Tablet, 1 TAB PO BID 02/15/17 Propafenone Hcl (PROPAFENONE HCL) 225 Mg Cap.er.12h, 1 CAP PO BID 02/15/17 Doxazosin Mesylate (DOXAZOSIN MESYLATE) 4 Mg Tablet, 1 TAB PO QDAY 10/11/16 Vitamin B Comp W-C (Kelly B Comp W/C) 1 Cap Capsule, 1 CAP PO DAILY 11/10/08 Aspirin (Aspirin Ec) 81 Mg Tablet., 1 TAB PO DAILY 11/10/08 Reviewed Nurses Notes: Yes Old Medical Records Reviewed: Yes Hx Smoking: Yes (AGE 19 FOR JUST A YR.) Smoking Status: Former Smoker Hx Substance Use Disorder: No Hx Alcohol Use: No Constitutional Vital Sign - Last 24 Hours 04/18/18 20:27 Temp 98.9 Pulse 88 Resp 16 B/P (MAP) 170/85 Pulse Ox 88 O2 Delivery Room Air Physical Exam General Appearance: The patient is alert, has no immediate need for airway protection and no current signs of toxicity. Eyes: Pupils equal and round no injection. Respiratory: Chest is non tender, lungs are clear to auscultation. Cardiac: regular rate and rhythm Gastrointestinal: Abdomen is soft and non tender, no masses, bowel sounds normal. Genital: Circumcised male genitalia Musculoskeletal: Neck: Neck is supple and non tender. Extremities have full range of motion and are non tender. Skin: No rashes or lesions. DIFFERENTIAL DIAGNOSIS: After history and physical exam differential diagnosis was considered for urinary retention including but not limited to medication side effect, neurologic causes, outflow obstruction including prostatic hypertrophy, and blood. Medical Decision Making Data Points Laboratory Hematology Test 04/18/18 21:19 Urine Color Nia Urine Clarity Clear Urine pH 6.0 pH (4.8-9.5) Urine Specific Kaufman 1.004 Urine Protein 100 mg/dL (NEGATIVE) Urine Glucose (UA) Negative mg/dL (NEGATIVE) Urine Ketones Negative mg/dL (NEGATIVE) Urine Blood Large (NEGATIVE) Urine Nitrite Negative (NEGATIVE) Urine Bilirubin Negative (NEGATIVE) Urine Urobilinogen Negative mg/dL (0.2-1.9) Urine Leukocyte Esterase Negative (NEGATIVE) Urine RBC 23 /HPF (0-2/HPF) Urine WBC 16 /HPF (0-5/HPF) Urine Squamous Epithelial Cells None /LPF (NONE-FEW) Urine Bacteria Few /HPF (NONE-FEW) Urine Mucus None /HPF (NONE-FEW) Chemistry Test 04/18/18 21:19 Urine Color Nia Urine Clarity Clear Urine pH 6.0 pH (4.8-9.5) Urine Specific Kaufman 1.004 Urine Protein 100 mg/dL (NEGATIVE) Urine Glucose (UA) Negative mg/dL (NEGATIVE) Urine Ketones Negative mg/dL (NEGATIVE) Urine Blood Large (NEGATIVE) Urine Nitrite Negative (NEGATIVE) Urine Bilirubin Negative (NEGATIVE) Urine Urobilinogen Negative mg/dL (0.2-1.9) Urine Leukocyte Esterase Negative (NEGATIVE) Urine RBC 23 /HPF (0-2/HPF) Urine WBC 16 /HPF (0-5/HPF) Urine Squamous Epithelial Cells None /LPF (NONE-FEW) Urine Bacteria Few /HPF (NONE-FEW) Urine Mucus None /HPF (NONE-FEW) Urinalysis Test 04/18/18 21:19 Urine Color Nia Urine Clarity Clear Urine pH 6.0 pH (4.8-9.5) Urine Specific Kaufman 1.004 Urine Protein 100 mg/dL (NEGATIVE) Urine Glucose (UA) Negative mg/dL (NEGATIVE) Urine Ketones Negative mg/dL (NEGATIVE) Urine Blood Large (NEGATIVE) Urine Nitrite Negative (NEGATIVE) Urine Bilirubin Negative (NEGATIVE) Urine Urobilinogen Negative mg/dL (0.2-1.9) Urine Leukocyte Esterase Negative (NEGATIVE) Urine RBC 23 /HPF (0-2/HPF) Urine WBC 16 /HPF (0-5/HPF) Urine Squamous Epithelial Cells None /LPF (NONE-FEW) Urine Bacteria Few /HPF (NONE-FEW) Urine Mucus None /HPF (NONE-FEW) ED Course/Re-evaluation ED Course Patient was admitted to an examination room. H&P was done. The differential diagnoses was considered. On clinical examination. Patient hasn't bolus in his suprapubic region consistent with urinary retention. A bladder scan is performed. A Gunn catheter is inserted with a Urojet lidocaine anesthetic. Initially, some clots were drained. But after that clear yellow urine is drained with microscopic hematuria on urinalysis. The Gunn catheter will be left in place. He is advised to follow-up with Dr. Lee for removal on Saturday Decision to Disposition Date: Apr 18, 2018 Decision to Disposition Time: 21:15 Depart Departure Latest Vital Signs Vital Signs Date Time Temp Pulse Resp B/P (MAP) Pulse Ox O2 Delivery O2 Flow Rate FiO2 04/18/18 20:27 98.9 88 16 170/85 88 Room Air Impression: Primary Impression: Urinary retention Condition: Improved Disposition: HOME OR SELF-CARE Referrals: KELLY CERVANTES MD (PCP) Patient Instructions: Urinary Retention in Men (ED) Additional Instructions: Follow-up with Dr. Lee Saturday for removal of your catheter ELIEL KERR DO Apr 18, 2018 21:17
== END 2018-04-18 21:40 | disposition home or self-care (01) ==
LOC: ER 20:31
DX: R33.9 Retention of urine, unspecified (principal)
CPT/HCPCS: 81001; 99283; A4338; A4346

== ENCOUNTER 2018-04-20 15:24 | Emergency (ER) | payer MEDICARE ==
[2018-04-20 15:28] VITALS: BP 129/60
--- NOTE | 2018-04-20 15:36 | ER Report ---
History and Physical Time Seen By MD: 15:36 Hx. of Stated Complaint: CATHETER NOT WORKING HPI/ROS CHIEF COMPLAINT: urine is leaking around my catheter HISTORY OF PRESENT ILLNESS: PT is getting BCG treatments for bladder ca. PT was seen her a few nights ago post treatment due to urinary retention. Cather was placed. Pt states today he is now leaking around the cather. NO blood visible in his urine. Pt has no abd pain. Pt is asking to have the cather removed. REVIEW OF SYSTEMS: Constitutional: No fever, no chills. Eyes: No discharge. ENT: No sore throat. Cardiovascular: No chest pain, no palpitations. Respiratory: No cough, no shortness of breath. Gastrointestinal: No abdominal pain, no vomiting. Genitourinary: + hx hematuria, + leaking around catheter Musculoskeletal: No back pain. Skin: No rashes. Neurological: No headache. Allergies: Coded Allergies: soy (Verified Allergy, Severe, BLURRED VISION, HEADACHES, 04/20/18) clindamycin (Verified Allergy, Unknown, 04/20/18) fentanyl (Verified Allergy, Unknown, Nausea, 04/20/18) morphine (Verified Adverse Reaction, Severe, NV, 04/20/18) Uncoded Allergies: tobacco (Allergy, Unknown, 02/15/17) Home Meds Active Scripts Bcg Vaccine, Live/Pf (BCG VACCINE (SERGIO STRAIN) VIAL) 50 Mg Vial, 50 MG INTRAVES Q7DAY for 42 Days, #1 VIAL Prov:NUBIA LEE MD 03/04/18 Hydrochlorothiazide (HYDROCHLOROTHIAZIDE) 25 Mg Tablet, 1 TAB PO QDAY for 90 Days, #90 TAB Prov:KELLY CERVANTES MD 12/30/17 Diclofenac Sodium 1% Gel (VOLTAREN 1% GEL) 100 Gm Gel..gram., 2 GM TOP BID for 30 Days, #1 TUBE Prov:KELLY CERVANTES MD 11/25/17 Benazepril Hcl (BENAZEPRIL HCL) 20 Mg Tab, 2 TAB PO QDAY for 90 Days, #180 TAB 4 Refills Prov:KELLY CERVANTES MD 03/22/17 Reported Medications Glucosamine/D3/Boswellia Shraddha (GLUCOSAMINE COMPLEX TABLET) 1 Each Tablet, 1 TAB PO BID 02/15/17 Propafenone Hcl (PROPAFENONE HCL) 225 Mg Cap.er.12h, 1 CAP PO BID 02/15/17 Doxazosin Mesylate (DOXAZOSIN MESYLATE) 4 Mg Tablet, 1 TAB PO QDAY 10/11/16 Vitamin B Comp W-C (Kelly B Comp W/C) 1 Cap Capsule, 1 CAP PO DAILY 11/10/08 Aspirin (Aspirin Ec) 81 Mg Tablet.dr, 1 TAB PO DAILY 11/10/08 Past Medical/Surgical History Pmhx: BCG treamtnet for bladder ca, afib, htn, sleep apnea, IBS, prostates ca, bladder ca, renal ca Pshx: Choelithiasis Reviewed Nurses Notes: Yes Hx Smoking: Yes (AGE 19 FOR JUST A YR.) Smoking Status: Former Smoker Hx Substance Use Disorder: No Hx Alcohol Use: No Constitutional Vital Sign - Last 24 Hours 04/20/18 15:28 Pulse 104 Resp 14 B/P (MAP) 129/60 Pulse Ox 85 O2 Delivery Room Air Physical Exam General Appearance: The patient is alert, has no immediate need for airway protection and no signs of toxicity. Eyes: Pupils equal and round no pallor or injection, EOMI ENT: no pharyngeal erythema or exudates, Mucous membranes are moist Respiratory: There are no retractions, lungs are clear to auscultation. Cardiovascular: Regular rate and rhythm. pulses are equal and symmetrical Gastrointestinal: Abdomen is soft and non tender, no masses, bowel sounds normal, no guarding, no rigidity or rebound Neurological: Cranial nerves II-XII grossly intact, no sensory or motor loss Skin: Warm and dry, no rashes. Musculoskeletal: Neck is supple non tender, no vertebral tenderness Extremities are nontender, non swollen and have full range of motion. DIFFERENTIAL DIAGNOSIS: After history and physical exam differential diagnosis was considered for urinary retention Medical Decision Making ED Course/Re-evaluation ED Course PT prefers no to have a catheter replaced but to have it removed completely. I am agreeable to remove but let pt know it is possible that he may need to return if he has retention again. Pt is agreeable to repeat cathter at that time. Decision to Disposition Date: Apr 20, 2018 Decision to Disposition Time: 15:52 Depart Departure Latest Vital Signs Vital Signs Date Time Temp Pulse Resp B/P (MAP) Pulse Ox O2 Delivery O2 Flow Rate FiO2 04/20/18 15:28 104 14 129/60 85 Room Air Impression: Primary Impression: Encounter for Venegas catheter removal Condition: Improved Disposition: HOME OR SELF-CARE Referrals: KELLY CERVANTES MD (PCP) NUBIA LEE MD Patient Instructions: GENERAL ER DISCHARGE INSTRUCTIONS Additional Instructions: We removed your venegas cather. Follow up with your urologist as needed. If you develop problems urinating please return for new catheter placement. VIGNESH BLACKMON DO Apr 20, 2018 15:36
[2018-04-20] MEDS ORDERED: LIDOCAINE 2% 200MG/10ML UROJET TP ONE (15:45)
== END 2018-04-20 16:02 | disposition home or self-care (01) ==
LOC: ER 15:31
DX: T85.9XXA Unspecified complication of internal prosthetic device, implant and graft, initial encounter (principal)
CPT/HCPCS: 99283

== ENCOUNTER 2018-05-15 11:08 | Outpatient (RCR) | payer MEDICARE ==
[2018-03-27 16:50] VITALS: BP 141/79
[2018-04-10 12:49] VITALS: BP 121/74
[2018-04-17 12:46] VITALS: BP 135/71
[2018-05-08 14:25] VITALS: BP 123/80
[~2018-05-15 11:08] MED LIST changes: +SODIUM CHLORIDE IR ONE; +[UNRECOGNIZED DRUG - OTHER] IR ONE; +[UNRECOGNIZED DRUG - OTHER] IR ONE
[2018-05-15 11:19] VITALS: BP 117/73
[2018-05-15] MEDS ORDERED: [UNRECOGNIZED DRUG - OTHER] IR ONE (11:45)
[2018-05-15] MEDS ORDERED: SODIUM CHLORIDE IR ONE (11:45)
[2018-06-23] MEDS ORDERED: ERYT1OIN3 TOP (09:56)
== END 2018-06-24 ==
LOC: ONC 11:08
PROVIDERS: ATTEND Urology
DX: Z51.11 Encounter for antineoplastic chemotherapy (principal); C67.9 Malignant neoplasm of bladder, unspecified
CPT/HCPCS: 51701; 51720; J7050; J9031; 87088; 99284

== ENCOUNTER → 2018-07-02 | Outpatient (CLI) | payer MEDICARE ==
[~2018-07-02] MED LIST changes: -SODIUM CHLORIDE IR ONE; -[UNRECOGNIZED DRUG - OTHER] IR ONE; -[UNRECOGNIZED DRUG - OTHER] IR ONE
== END ==
LOC: LAB 09:53
PROVIDERS: ATTEND Urology
DX: Z02.9 Encounter for administrative examinations, unspecified (principal)

== ENCOUNTER → 2018-07-04 | Outpatient (CLI) | payer MEDICARE ==
--- NOTE | 2018-07-04 10:58 | EKG ---
FACILITY: [facility] - [place] PATIENT NAME: BONNY KOHLER : [id number] MR: [id number] V: [id number] EXAM DATE: ORDERING PHYSICIAN: NUBIA LEE TECHNOLOGIST: UMBERTO Test Reason : PRE OP Blood Pressure : / mmHG Vent. Rate : 062 BPM Atrial Rate : 062 BPM P-R Int : 212 ms QRS Dur : 110 ms QT Int : 408 ms P-R-T Axes : 073 -31 057 degrees QTc Int : 414 ms Sinus rhythm with 1st degree AV block Left axis deviation Abnormal ECG When compared with ECG of 01-MAY-2014 05:37, No significant change was found Confirmed by Kirk Castro ([id number]) on 07/04/2018 3:09:01 PM Referred By: JESUS Confirmed By:Kirk Santo
[2018-07-04 11:02] LABS: PLATELET COUNT, AUTOMATED 174 K/uL (150-450)
== END ==
LOC: RESP 10:38
PROVIDERS: ATTEND Urology
DX: Z01.818 Encounter for other preprocedural examination (principal); R94.31 Abnormal electrocardiogram [ECG] [EKG]
CPT/HCPCS: 36415; 82310; 82374; 82435; 82565; 82947; 84132; 84295; 84520; 85025; 93005

== ENCOUNTER 2018-07-10 04:01 | Emergency (ER) | payer MEDICARE ==
--- NOTE | 2018-07-10 04:02 | ER Report ---
History and Physical Time Seen By MD: 04:02 HPI/ROS CHIEF COMPLAINT: Chest pain HISTORY OF PRESENT ILLNESS: 82-year-old male woke up with chest pain, 6/10 left substernal chest pain into his left shoulder, back and neck. Patient describes it as if he feels like 100 pounds as been loaded on his upper back and neck. He notes some nausea, no diaphoresis, no shortness of breath. Patient was on a baby aspirin daily but discontinued it for minor bladder surgery scheduled on next Saturday. 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 Patient notes the pain resolved after 15 minutes. He now notes some heaviness in his left shoulder and neck, which she describes as a numbness. Patient worse CPAP to breathe at night. Patient's wondering if this EPAP was malfunctioning as the cause of his symptoms. REVIEW OF SYSTEMS: Respiratory: No cough, no dyspnea. Cardiovascular: As above Gastrointestinal: No vomiting, no abdominal pain. Musculoskeletal: No back pain. Allergies: Coded Allergies: soy (Verified Allergy, Severe, BLURRED VISION, HEADACHES, 07/10/18) clindamycin (Verified Allergy, Unknown, 07/10/18) fentanyl (Verified Allergy, Unknown, Nausea, 07/10/18) morphine (Verified Adverse Reaction, Severe, NV, 07/10/18) Uncoded Allergies: tobacco (Allergy, Unknown, 02/15/17) Home Meds Active Scripts Erythromycin Base (Erythromycin) 5 Mg/Gram (0.5 %) Oint...g., 1 BRANDON TOP 3-4XD for 7 Days, #1 TUB 0 Refills Prov:KELLY CERVANTES MD 06/23/18 Hydrochlorothiazide (HYDROCHLOROTHIAZIDE) 25 Mg Tablet, 1 TAB PO QDAY for 90 Days, #90 TAB 4 Refills Prov:KELLY CERVANTES MD 05/12/18 Benazepril Hcl (BENAZEPRIL HCL) 20 Mg Tab, 2 TAB PO QDAY for 90 Days, #180 TAB 4 Refills Prov:KELLY CERVANTES MD 05/12/18 Bcg Vaccine, Live/Pf (BCG VACCINE (SERGIO STRAIN) VIAL) 50 Mg Vial, 50 MG INTRAVES Q7DAY for 42 Days, #1 VIAL Prov:NUBIA LEE MD 03/04/18 Reported Medications Glucosamine/D3/Boswellia Shraddha (GLUCOSAMINE COMPLEX TABLET) 1 Each Tablet, 1 TAB PO BID 02/15/17 Propafenone Hcl (PROPAFENONE HCL) 225 Mg Cap.er.12h, 1 CAP PO BID 02/15/17 Doxazosin Mesylate (DOXAZOSIN MESYLATE) 4 Mg Tablet, 1 TAB PO QDAY 10/11/16 Vitamin B Comp W-C (Kelly B Comp W/C) 1 Cap Capsule, 1 CAP PO DAILY 11/10/08 Aspirin (Aspirin Ec) 81 Mg Tablet.dr, 1 TAB PO DAILY 11/10/08 Discontinued Scripts Diclofenac Sodium 1% Gel (VOLTAREN 1% GEL) 100 Gm Gel..gram., 2 GM TOP BID for 30 Days, #1 TUBE Prov:KELLY CERVANTES MD 11/25/17 Past Medical/Surgical History Past Medical History HEENT: Reports hx of: other ENT disorders Cardiovascular: Reports hx of: atrial fibrillation (resolved, paroxysmal) hypertension Respiratory: Reports hx of: sleep apnea (CPAP at HS) Gastrointestinal: Reports hx of: cholelithiasis irritable bowel syndrome other GI history (Duodenal ulcer: some recurrence) Genitourinary: Reports hx of: other urinary history Hematology/oncology: Reports hx of: prostate cancer, renal cancer, other cancer history (bladder cancer, tx with bcg - Under serveillance ([facility], [facility])) Events: REPORTS HX OF: Other events (Fatigue) Past Surgical History Genitourinary: Reports hx of: other surgery (Kidney) Musculoskeletal: Reports hx of: total joint replacement (L4) Reviewed Nurses Notes: Yes Old Medical Records Reviewed: Yes Hx Smoking: Yes (AGE 19 FOR JUST A YR.) Smoking Status: Former Smoker Hx Substance Use Disorder: No Hx Alcohol Use: No Constitutional Vital Sign - Last 24 Hours 07/10/18 07/10/18 07/10/18 07/10/18 04:03 04:30 04:31 04:36 Temp 98.3 Pulse 66 60 63 Resp 15 10 16 B/P (MAP) 161/72 143/68 (93) Pulse Ox 92 90 87 O2 Delivery Room Air 07/10/18 07/10/18 07/10/18 07/10/18 04:41 04:46 04:51 04:56 Pulse 63 61 60 59 Resp 13 7 9 8 Pulse Ox 86 90 94 91 07/10/18 07/10/18 07/10/18 05:00 05:01 05:06 Pulse 56 65 Resp 6 8 B/P (MAP) 131/65 (87) Pulse Ox 94 85 Physical Exam General Appearance: The patient is alert, has no immediate need for airway protection and no current signs of toxicity. Vital signs stable, afebrile, pulse ox normal, mild distress, skin warm, dry, pink Eyes: Pupils equal and round no injection. Respiratory: Chest is non tender, lungs are clear to auscultation. No chest wall tenderness Cardiac: regular rate and rhythm, distant heart sounds Gastrointestinal: Abdomen is soft and non tender, no masses, bowel sounds normal. Musculoskeletal: Neck: Neck is supple and non tender. No lymphadenopathy, Extremities have full range of motion and are non tender. Skin: No rashes or lesions. DIFFERENTIAL DIAGNOSIS: After history and physical exam differential diagnosis was considered for chest pain including but not limited to myocardial ischemia, pericarditis pulmonary embolus, chest wall pain, pleural inflammation and pulmonary infectious causes. Medical Decision Making Data Points Result Diagram: 07/10/18 0407 07/10/18 0407 Laboratory Hematology Test 07/10/18 04:07 Red Blood Count 4.44 M/uL (4.00-5.60) Mean Corpuscular Volume 96.5 fL (80.0-96.0) Mean Corpuscular Hemoglobin 32.8 pg (26.0-33.0) Mean Corpuscular Hemoglobin Concent 34.0 g/dL (32.0-36.0) Red Cell Distribution Width 13.5 % (11.5-14.5) Mean Platelet Volume 8.2 fL (7.2-11.1) Neutrophils (%) (Auto) 63.5 % (39.4-72.5) Lymphocytes (%) (Auto) 15.0 % (17.6-49.6) Monocytes (%) (Auto) 10.7 % (4.1-12.4) Eosinophils (%) (Auto) 9.9 % (0.4-6.7) Basophils (%) (Auto) 0.9 % (0.3-1.4) Nucleated RBC Relative Count (auto) 0.0 /100WBC Neutrophils # (Auto) 3.1 K/uL (2.0-7.4) Lymphocytes # (Auto) 0.7 K/uL (1.3-3.6) Monocytes # (Auto) 0.5 K/uL (0.3-1.0) Eosinophils # (Auto) 0.5 K/uL (0.0-0.5) Basophils # (Auto) 0.0 K/uL (0.0-0.1) Nucleated RBC Absolute Count (auto) 0.00 K/uL D-Dimer Quantitative (PE/DVT) 0.45 ug/ml (0-0.50) Sodium Level 139 mmol/L (137-145) Potassium Level 3.5 mmol/L (3.5-5.0) Chloride Level 106 mmol/L (98-107) Carbon Dioxide Level 27 mmol/L (22-30) Blood Urea Nitrogen 25 mg/dl (9-21) Creatinine 1.40 mg/dl (0.66-1.25) Glomerular Filtration Rate Calc 48.4 Random Glucose 104 mg/dl (75-110) Calcium Level 9.0 mg/dl (8.4-10.2) Total Bilirubin 0.5 mg/dl (0.2-1.3) Aspartate Amino Transf (AST/SGOT) 23 U/L (0-35) Alanine Aminotransferase (ALT/SGPT) 25 U/L (0-56) Alkaline Phosphatase 84 U/L (0-126) Troponin I < 0.012 ng/ml B-Type Natriuretic Peptide 36 pg/ml (0-100) Total Protein 6.8 g/dl (6.3-8.2) Albumin 4.0 g/dl (3.5-5.0) Chemistry Test 07/10/18 04:07 White Blood Count 4.8 k/uL (4.5-11.0) Red Blood Count 4.44 M/uL (4.00-5.60) Hemoglobin 14.5 g/dL (14.0-18.0) Hematocrit 42.8 % (42.0-52.0) Mean Corpuscular Volume 96.5 fL (80.0-96.0) Mean Corpuscular Hemoglobin 32.8 pg (26.0-33.0) Mean Corpuscular Hemoglobin Concent 34.0 g/dL (32.0-36.0) Red Cell Distribution Width 13.5 % (11.5-14.5) Platelet Count 165 K/uL (150-450) Mean Platelet Volume 8.2 fL (7.2-11.1) Neutrophils (%) (Auto) 63.5 % (39.4-72.5) Lymphocytes (%) (Auto) 15.0 % (17.6-49.6) Monocytes (%) (Auto) 10.7 % (4.1-12.4) Eosinophils (%) (Auto) 9.9 % (0.4-6.7) Basophils (%) (Auto) 0.9 % (0.3-1.4) Nucleated RBC Relative Count (auto) 0.0 /100WBC Neutrophils # (Auto) 3.1 K/uL (2.0-7.4) Lymphocytes # (Auto) 0.7 K/uL (1.3-3.6) Monocytes # (Auto) 0.5 K/uL (0.3-1.0) Eosinophils # (Auto) 0.5 K/uL (0.0-0.5) Basophils # (Auto) 0.0 K/uL (0.0-0.1) Nucleated RBC Absolute Count (auto) 0.00 K/uL D-Dimer Quantitative (PE/DVT) 0.45 ug/ml (0-0.50) Glomerular Filtration Rate Calc 48.4 Calcium Level 9.0 mg/dl (8.4-10.2) Total Bilirubin 0.5 mg/dl (0.2-1.3) Aspartate Amino Transf (AST/SGOT) 23 U/L (0-35) Alanine Aminotransferase (ALT/SGPT) 25 U/L (0-56) Alkaline Phosphatase 84 U/L (0-126) Troponin I < 0.012 ng/ml B-Type Natriuretic Peptide 36 pg/ml (0-100) Total Protein 6.8 g/dl (6.3-8.2) Albumin 4.0 g/dl (3.5-5.0) Coagulation Test 07/10/18 04:07 D-Dimer Quantitative (PE/DVT) 0.45 ug/ml EKG/Imaging EKG Interpretation 12 lead EK Rhythm: normal sinus rhythm [place]: Left axis deviation QRS: normal ST segments: Nonspecific ST abnormality, comparison to previous EKG dated 07/04/18 and no significant change Imaging X-ray: Two-view chest x-ray was obtained. I viewed the images myself on the PACS system. My interpretation of the images is: Infiltrate, no effusion, norm al mediastinum., Comparison to previous chest x-ray dated 08/03/16, no significant change The radiologist interpretation had no clinically significant variation from this interpretation. ED Course/Re-evaluation Clinical Indication for ER IV: IV Access ED Course Patient was admitted to an examination room. H&P was done. The differential diagnosis was considered. Patient with unremarkable EKG compared to several days ago. His vital signs are stable. His pulse ox is normal except when he falls asleep, his sats drop. He wears CPAP at night when he sleeps. I am suspicious he had a major hypoxic episode which caused him to wake up with the chest tightness and heaviness. All of his diagnostic studies were unremarkable, his BUN/creatinine are chronically mildly elevated and unchanged. The patient was reassured. He is advised to follow-up with his primary care. He may need supplemental O2. With this CPAP Decision to Disposition Date: Jul 10, 2018 Decision to Disposition Time: 05:12 Depart Departure Latest Vital Signs Vital Signs Date Time Temp Pulse Resp B/P (MAP) Pulse Ox O2 Delivery O2 Flow Rate FiO2 07/10/18 05:06 65 8 85 07/10/18 05:00 131/65 (87) 07/10/18 04:03 98.3 Room Air Impression: Primary Impression: Chest pain Additional Impression: Sleep apnea Condition: Improved Disposition: HOME OR SELF-CARE Referrals: KELLY CERVANTES MD (PCP) Patient Instructions: Chest Pain (ED) Additional Instructions: Follow-up with your primary care. You may need supplemental oxygen with your CPAP and to keep your oxygen saturations up Problem Qualifiers Primary Impression: Chest pain Chest pain type: unspecified Qualified Codes: R07.9 - Chest pain, unspecified Additional Impression: Sleep apnea Sleep apnea type: unspecified type Qualified Codes: G47.30 - Sleep apnea, unspecified ELIEL KERR DO Jul 10, 2018 04:02
[2018-07-10 04:20] LABS: PLATELET COUNT, AUTOMATED 165 K/uL (150-450)
--- NOTE | 2018-07-10 04:44 | RADIOLOGY IMAGING REPORT ---
FACILITY: [facility] PATIENT NAME: Jack Hernandez : 1935 MR: [id number] V: [id number] EXAM DATE: [id number] ORDERING PHYSICIAN: ELIEL KERR TECHNOLOGIST: [place] [facility] [place] : 1935 Visit/Account:[id number] Date of Sevice: 07/10/2018 CHEST PA LAT HISTORY: Posterior upper chest pain. COMPARISON: 08/03/2016 and studies dating to 12/26/2007. TECHNIQUE: PA and lateral views of the chest. FINDINGS: Pulmonary/pleura: There are minimal bibasilar opacities, stable. There is no pneumothorax or pleural effusion. Cardiomediastinal: Cardiac and mediastinal silhouettes are within normal limits. There is mild aortic calcification. Bones/soft tissues: No acute osseous abnormality. There is mild degenerative change of the spine. The re are fused anterior flowing osteophytes from the mid to lower thoracic spine. There is stable minim al wedging of T7 and T8. The visible abdomen is normal. IMPRESSION: 1. Stable chest without acute process. Report Dictated By: Pam Ortega at 07/10/2018 4:37 AM Report E-Signed By: Pam Ortega at 07/10/2018 4:40 AM WSN:[id number]
[2018-07-10 05:00] VITALS: BP 131/65
--- NOTE | 2018-07-10 05:56 | EKG ---
FACILITY: [facility] - [place] PATIENT NAME: Jack KOHLER : [id number] MR: [id number] V: [id number] EXAM DATE: ORDERING PHYSICIAN: ELIEL KERR TECHNOLOGIST: PARISH Test Reason : CP Blood Pressure : / mmHG Vent. Rate : 069 BPM Atrial Rate : 069 BPM P-R Int : 204 ms QRS Dur : 092 ms QT Int : 418 ms P-R-T Axes : 050 -40 -03 degrees QTc Int : 447 ms Normal sinus rhythm Left axis deviation Nonspecific ST abnormality Abnormal ECG When compared with ECG of 04-JUL-2018 10:47, No significant change was found Confirmed by ROSEY CASTILLO ([id number]) on 07/10/2018 6:25:53 AM Referred By: Confirmed By:ROSEY CASTILLO
== END 2018-07-10 05:21 | disposition home or self-care (01) ==
LOC: ER 04:32
DX: G47.30 Sleep apnea, unspecified (principal); R07.9 Chest pain, unspecified; R94.31 Abnormal electrocardiogram [ECG] [EKG]; Z79.82 Long term (current) use of aspirin
CPT/HCPCS: 71046; 82040; 82247; 82310; 82374; 82435; 82565; 82947; 83880; 84075; 84132; 84155; 84295; 84450; 84460; 84484; 84520; 85025; 85379; 93005; 99284

== ENCOUNTER 2018-07-14 02:27 | Day surgery (SDC) | payer MEDICARE ==
[~2018-07-14] VITALS: Ht 167.6 cm; Wt 82.6 kg
[2018-07-14] VITALS (13 sets, daily range): BP systolic 138–175; BP diastolic 59–92
[2018-07-14] MEDS ORDERED: APREPITANT 40 MG CAP PO ONE (07:05)
[2018-07-14] MEDS ORDERED: LEVOFLOXACIN/D5W*500 MG/100 ML 100 ML IVPB ONE (07:05)
[2018-07-14] MEDS ORDERED: BELLADONNA ALK/OPIUM 60MG SUPP PR ONE (07:20)
[2018-07-14] MEDS: NORMOSOL R SOLN(*) 1000 ML BAG 1,000 ML IV PRN ×2 (07:37→10:11)
[2018-07-14] MEDS ORDERED: FAMOTIDINE 20 MG TAB PO ONE (07:55)
[2018-07-14] MEDS ORDERED: LIDOCAINE/SOD BICARB 8.4% SYR ID ONE (07:55)
[2018-07-14] MEDS ORDERED: MIDAZOLAM 2 MG/2 ML VIAL IVP PRN (07:55)
[2018-07-14] MEDS ORDERED: PROPOFOL EMUL(*) 10MG/ML 20 ML 20 ML ONE (07:57)
[2018-07-14] MEDS ORDERED: ONDANSETRON 4 MG/2 ML VIAL ONE (07:57)
[2018-07-14] MEDS ORDERED: DEXAMETHASONE SOD 4 MG/ML VIAL ONE (07:57)
[2018-07-14] MEDS ORDERED: LIDOCAINE MPF 1% 5 ML VIAL ONE (07:57)
[2018-07-14] MEDS ORDERED: HYDROmorphone HCL 2 MG/ML SDV ONE (08:40)
[2018-07-14] MEDS ORDERED: NS 0.9% 20 ML SDV 20 ML ONE (08:41)
[2018-07-14] MEDS ORDERED: ePHEDrine 25 MG/5 ML DISP.SYR IVP ONE (08:56)
[2018-07-14] MEDS ORDERED: ACETAMINOPHEN(*)1000 MG/100 ML 100 ML IVPB ONE (08:59)
[2018-07-14] MEDS ORDERED: SUGAMMADEX SOD 200 MG/2 ML SDV ONE (09:28)
--- NOTE | 2018-07-14 10:03 | Urology Discharge Summary ---
Discharge Summary Reason for Hosp/Final Diag: (1) Cancer, bladder, neck Status: Resolved Departure Weight (Pounds): 182 Condition: Improved Discharge: Home Discharge Instructions Home Meds Active Scripts Erythromycin Base (Erythromycin) 5 Mg/Gram (0.5 %) Oint...g., 1 BRANDON TOP 3-4XD for 7 Days, #1 TUB 0 Refills Prov:KELLY CERVANTES MD 06/23/18 Hydrochlorothiazide (HYDROCHLOROTHIAZIDE) 25 Mg Tablet, 1 TAB PO QDAY for 90 Days, #90 TAB 4 Refills Prov:KELLY CERVANTES MD 05/12/18 Benazepril Hcl (BENAZEPRIL HCL) 20 Mg Tab, 2 TAB PO QDAY for 90 Days, #180 TAB 4 Refills Prov:KELLY CERVANTES MD 05/12/18 Bcg Vaccine, Live/Pf (BCG VACCINE (SERGIO STRAIN) VIAL) 50 Mg Vial, 50 MG INTRAVES Q7DAY for 42 Days, #1 VIAL Prov:NUBIA LEE MD 03/04/18 Reported Medications Glucosamine/D3/Boswellia Shraddha (GLUCOSAMINE COMPLEX TABLET) 1 Each Tablet, 1 TAB PO BID 02/15/17 Propafenone Hcl (PROPAFENONE HCL) 225 Mg Cap.er.12h, 1 CAP PO BID 02/15/17 Doxazosin Mesylate (DOXAZOSIN MESYLATE) 4 Mg Tablet, 1 TAB PO QDAY 10/11/16 Vitamin B Comp W-C (Kelly B Comp W/C) 1 Cap Capsule, 1 CAP PO DAILY 11/10/08 Aspirin (Aspirin Ec) 81 Mg Tablet.dr, 1 TAB PO DAILY 11/10/08 Discontinued Scripts Diclofenac Sodium 1% Gel (VOLTAREN 1% GEL) 100 Gm Gel..gram., 2 GM TOP BID for 30 Days, #1 TUBE Prov:KELLY CERVANTES MD 11/25/17 Diet: Regular Activity: As Tolerated Special Instructions: Please call the office to schedule an office visit for Saturday to have the catheter removed. Call me for any problems or concerns [phone] Venous Thromboembolism Antithrombotics Is Pt On Any Antithrombotics?: No Prophylaxis Tx Contraindicated Pharmacological Contraindicati: Surgical Contraindication NUBIA LEE MD Jul 14, 2018 10:02
--- NOTE | 2018-07-14 11:45 | NUR ---
1100 PT ARRIVED TO [place] VIA CART, SBAR FROM Rylee ORELLANA RN AND Alicia TOMAS, VSS, HIGH BP, BRADYCARDIC, DIAPHORETIC, TEMP READING LOW, NO PAIN, BUT NAUSEOUS, DECLINES FOOD/DRINK AT THIS TIME, CBI RUNNING V. LIGHT PINK TO CLEAR 1130 VSS, BP AND TEMP IMPROVED, NO PAIN, NAUSEA IMPROVED, SATTING WELL ON 1.5L NC, STILL PARKER 1145 PT TOLERATING ICE CHIPS, RESTING WITH EYES CLOSED, LIGHTS LOWERED, DOWN TO 1L NC
--- NOTE | 2018-07-14 12:10 | NUR ---
1200 VSS, NAUSEA UNCHANGED CBI OUTPUT UNCHANGED, PT RESTING WITH EYES CLOSED, WOULD LIKE TO KEEP RESTING. 1210 SBAR TO Kirsten MARTINEZ RN
--- NOTE | 2018-07-14 12:49 | OPERATIVE REPORT 1 ---
EVENT DATE: July 14, 2018 SURGEON: Sumanth Davis MD ANESTHESIOLOGIST: Simón Márquez MD ANESTHESIA: General. AGRICULTURAL ECONOMICS TEACHER: None. PREOPERATIVE DIAGNOSIS Recurrent transitional cell carcinoma of the bladder. POSTOPERATIVE DIAGNOSIS Recurrent transitional cell carcinoma of the bladder. PROCEDURE PERFORMED Transurethral resection of prostate with fulguration of prostatic urethra. DESCRIPTION OF PROCEDURE Patient was brought to the operating room and after the adequate induction of general anesthesia he was placed in the relaxed dorsal lithotomy position. Genitalia were scrubbed, prepped and draped in a sterile fashion and the bladder examined with the resectoscope. The previously noted urothelial lesion at approximately 10 o'clock position in the prostatic urethra was observed. The procedure commenced with initial resection of the prostate at the bladder neck circumferentially to incorporate the entire bladder neck. Examination of the bladder demonstrated no other urothelial lesions so the remainder of the prostatic fossa was fulgurated using the button device to ablate the urothelium but to not formally resect excessive tissue, especially down near the apex of the prostate. Once accomplished, the chips were evacuated with the Plix evacuator and passed off for specimen. No bleeding was observed and a 22-[place] three-way continuous flow catheter passed into the bladder connected to continuous irrigation. He was aroused from anesthesia and then transported to PACU in stable condition. FRANCESCO
--- NOTE | 2018-07-14 13:09 | NUR ---
1300 RESUMED CARE OF PT. VSS, NAUSEA MILDLY IMPROVED, 625ML EMPTIED FROM RIVAS BAG, PT RESTING QUIETLY. TURNED DOWN TO 0.5L NC, BORDERLINE SPO2
--- NOTE | 2018-07-14 14:43 | NUR ---
1330 VSS, PT RESTING, DOWN TO 0.5L NC 1400 VSS, PT RESTING, 1430 VSS, PT TOLERATING SIPS OF WATER
--- NOTE | 2018-07-14 14:46 | NUR ---
1445 PT TOLERATING CHOCOLATE PUDDING, CALLED PARTNER FOR RIDE
--- NOTE | 2018-07-14 15:21 | NUR ---
1515 600ML EMPTIED FROM RIVAS BAG, V. LIGHT PINK TO CLEAR. SECOND BAG OF CBI STARTED, FIRST ONE EMPTY. PT'S PARTNER IS ON HER WAY TO THE HOSPITAL TO PICK HIM UP.
--- NOTE | 2018-07-14 15:36 | NUR ---
1530 PARTNER, SATURDAY, AT BEDSIDE, BACK DOWN TO 0.5L NOW THAT HE IS DONE EATING.
--- NOTE | 2018-07-14 17:31 | NUR ---
1545 PARTNER SATURDAY AT BEDSIDE 1600 PT READY TO GO HOME, ORTHOSTATICS DONE, STABLE, PT DESCRIBES SOME LIGHTHEADEDNESS, GIVEN EXTRA TIME TO ADJUST AFTER EACH POSITION CHANGE, IMPROVED, BPS ALL STABLE. ASSISTED PT WITH SWITCHING TO LEG BAG. EDUCATION PROVIDED, ALLOWED TO DRESS WITH MINIMAL ASSISTANCE FROM PARTNER 1605 PT TO RESTROOM, DESCRIBES LOOSE STOOL, ADVISED TO MONITOR 1610 D/C INSTRUCTIONS COVERED, ALL QUESTIONS ANSWERED, 1620 PT OUT TO CAR AT ADMITTING ENTRANCE BY WC, ALL BELONGINGS WITH PT, SAFETY MAINTAINED 1635 PC TO PT, IV NOT REMOVED, REQUEST THEY COME BACK TO ADMITTING ENTRANCE TO HAVE REMOVED. PT AND PARTNER HAPPY TO RETURN 1650 MET PT AT PARTNER IN CAR OUTSIDE OF ADMITTING ENTRANCE TO REMOVE IV, CATH TIP INTACT, PRESSURE DRESSING APPLIED
== END 2018-07-14 11:00 | disposition home or self-care (01) ==
LOC: OR 02:27
PROVIDERS: ATTEND Urology
DX: C67.9 Malignant neoplasm of bladder, unspecified (principal)
CPT/HCPCS: 52648; 88305; A9270; J0131; J1100; J1170; J1956; J2001; J2405; J2704; J7050; J8501

== ENCOUNTER → 2018-08-28 | Outpatient (CLI) | payer MEDICARE | LOC: LAB 13:51 | PROVIDERS: ATTEND Internal Medicine Nephrology | DX: N30.00 Acute cystitis without hematuria (principal); N18.3 Chronic kidney disease, stage 3 (moderate); N28.1 Cyst of kidney, acquired; I12.9 Hypertensive chronic kidney disease with stage 1 through stage 4 chronic kidney disease, or unspecified chronic kidney disease | CPT/HCPCS: 81001; 82570; 84156; 87088 ==